=== PATIENT | female | born 1985 | race Caucasian/White ===

== ENCOUNTER 2018-12-29 15:01 | Emergency (ER) | payer MEDICAID ==
[~2018-12-29] VITALS: Ht 157.5 cm; Wt 71.2 kg
[2018-12-29 15:18] VITALS: BP 118/91; Ht 157.5 cm; Wt 71.2 kg
== END 2018-12-29 16:12 | disposition home or self-care (01) ==
LOC: EDBD 15:01 → ED 15:01
DX: H61.21 Impacted cerumen, right ear (principal)

== ENCOUNTER 2019-01-11 18:12 | Emergency (ER) | payer MEDICAID ==
[~2019-01-11] VITALS: Ht 157.5 cm; Wt 72.1 kg
[2019-01-11 18:16] VITALS: Ht 157.5 cm; Wt 72.1 kg
[2019-01-11 21:32] VITALS: BP 104/73
== END 2019-01-11 21:32 | disposition home or self-care (01) ==
LOC: ED 18:12
DX: N83.209 Unspecified ovarian cyst, unspecified side (principal); N76.0 Acute vaginitis
CPT/HCPCS: 87491; 87591